=== PATIENT | male | born 2000 | race African-American/Black ===

== ENCOUNTER 2019-10-31 16:42 | Emergency (ER) | payer OTHER, SELFPAY ==
[2019-10-31] MEDS ORDERED: Bupivacaine PF 0.5% 30 ML VIAL ONE (17:07)
== END 2019-10-31 17:22 | disposition home or self-care (01) ==
LOC: MADERS 16:42
DX: K08.89 Other specified disorders of teeth and supporting structures (principal); F17.210 Nicotine dependence, cigarettes, uncomplicated
CPT/HCPCS: 99282; S0020

== ENCOUNTER 2020-04-24 13:09 | Emergency (ER) | payer SELFPAY | END 2020-04-24 14:12 | disposition home or self-care (01) | LOC: MADERS 13:09 | DX: B00.1 Herpesviral vesicular dermatitis (principal); K02.9 Dental caries, unspecified; F17.210 Nicotine dependence, cigarettes, uncomplicated | CPT/HCPCS: 99282 ==

== ENCOUNTER 2021-05-07 14:45 | Emergency (ER) | payer SELFPAY ==
[2021-05-07] MEDS ORDERED: Ondansetron PF 4 MG/2 ML Vial ONE (15:40)
[2021-05-07] MEDS ORDERED: Sodium Chloride 0.9% 2,000 ML ONE (15:40)
[2021-05-07 15:46] LABS: Hemoglobin 15.3 g/dL (14.0-18.0); Lymphocytes 9 % (21-51); MDiff Complete? YES; Mean Corpuscular HGB CONC 31.6 g/dL (32.0-36.0); Mean Corpuscular Hemoglobin 29.9 pg (27.0-31.0); Mean Corpuscular Volume 94.9 fL (78.0-98.0); Mean Platelet Volume 8.2 fL (7.4-10.4); Monocytes 3 % (0-10); Neutrophil 88 % (42-75); Platelet Count 279 thou/uL (130-400); RBC Distribution Width 12.1 % (11.5-14.5); White Blood Cell (WBC) Count 14.3 thou/uL (4.8-10.8)
[2021-05-07 15:54] LABS: ALT (SGPT) 25 U/L (8-55); AST (SGOT) 32 U/L (5-34); Albumin 5.7 g/dL (3.5-5.0); Alkaline Phosphatase 74 U/L (40-110); Anion Gap 23 mmol/L (10-20); BUN (Urea Nitrogen) 21 mg/dL (8.9-20.6); CK (CPK) 766 U/L (30-200); Calc. Creatinine Clearance 0 mL/min (70-130); Calcium 11.1 mg/dL (7.8-10.44); Carbon Dioxide 21 mmol/L (22-29); Chloride 102 mmol/L (98-107); Globulin 4.7 g/dL (2.4-3.5); Glucose 108 mg/dL (70-105); Potassium 3.7 mmol/L (3.5-5.1); Protein, Total 10.4 g/dL (6.0-8.3); Sodium 142 mmol/L (136-145)
[2021-05-07 17:29] LABS: Anion Gap 17 mmol/L (10-20); BUN (Urea Nitrogen) 18 mg/dL (8.9-20.6); CK (CPK) 609 U/L (30-200); Calc. Creatinine Clearance 0 mL/min (70-130); Calcium 9.6 mg/dL (7.8-10.44); Carbon Dioxide 25 mmol/L (22-29); Chloride 106 mmol/L (98-107); Glucose 92 mg/dL (70-105); Potassium 4.1 mmol/L (3.5-5.1); Sodium 144 mmol/L (136-145)
== END 2021-05-07 17:56 | disposition home or self-care (01) ==
LOC: MADERS 14:45
DX: E86.0 Dehydration (principal); M62.82 Rhabdomyolysis; N17.9 Acute kidney failure, unspecified; Z87.891 Personal history of nicotine dependence
CPT/HCPCS: 36415; 80053; 82550; 85025; 93005; 96374; J2405; J7050

== ENCOUNTER 2021-07-07 18:34 | Emergency (ER) | payer SELFPAY | END 2021-07-07 21:10 | disposition home or self-care (01) | LOC: MADERS 18:34 | DX: J02.9 Acute pharyngitis, unspecified (principal); Z87.891 Personal history of nicotine dependence | CPT/HCPCS: 99282 ==

== ENCOUNTER 2021-08-19 03:56 | Emergency (ER) | payer SELFPAY ==
[2021-08-19] MEDS ORDERED: Ondansetron ODT 4 MG TAB ONE (04:12)
[2021-08-19 04:38] LABS: ALT (SGPT) 14 U/L (8-55); AST (SGOT) 14 U/L (5-34); Albumin 3.8 g/dL (3.5-5.0); Alkaline Phosphatase 48 U/L (40-110); Anion Gap 13 mmol/L (10-20); BUN (Urea Nitrogen) 16 mg/dL (8.9-20.6); Bilirubin, Total 0.2 mg/dL (0.2-1.2); Calc. Creatinine Clearance 0 mL/min (70-130); Calcium 9.2 mg/dL (7.8-10.44); Carbon Dioxide 25 mmol/L (22-29); Chloride 106 mmol/L (98-107); Globulin 3.4 g/dL (2.4-3.5); Glucose 103 mg/dL (70-105); Potassium 4.1 mmol/L (3.5-5.1); Protein, Total 7.2 g/dL (6.0-8.3); Sodium 140 mmol/L (136-145)
[2021-08-19 04:39] LABS: Band 2 % (5-11); Eosinophils 2 % (0-10); Hemoglobin 13.3 g/dL (14.0-18.0); Lymphocytes 34 % (21-51); MDiff Complete? YES; Mean Corpuscular HGB CONC 32.1 g/dL (32.0-36.0); Mean Corpuscular Hemoglobin 30.7 pg (27.0-31.0); Mean Corpuscular Volume 95.6 fL (78.0-98.0); Monocytes 5 % (0-10); Neutrophil 57 % (42-75); Platelet Count 238 thou/uL (130-400); RBC Distribution Width 11.9 % (11.5-14.5); Red Blood Cell (RBC) Count 4.32 mill/uL (4.70-6.10); White Blood Cell (WBC) Count 7.7 thou/uL (4.8-10.8)
[2021-08-19 04:40] LABS: Bilirubin Negative (Negative); Blood, Urine Trace (Negative); Clarity Clear (Clear); Glucose, Urine (Dipstick) Negative (Negative); Ketone, Urine Negative (Negative); Leukocyte Negative (Negative); Nitrite Negative (Negative); Protein, Urine (Dipstick) Negative (Neg-Trace); Specific Gravity, Urine 1.025 (1.005-1.030); pH, Urine 6.5 (5.0-9.0)
[2021-08-19 04:41] LABS: Mucous/LPF 1+ LPF (<2+); Squamous Epithelial 0-3 HPF (0-3)
== END 2021-08-19 05:05 | disposition home or self-care (01) ==
LOC: MADERS 03:56
DX: R11.10 Vomiting, unspecified (principal); Z87.891 Personal history of nicotine dependence
CPT/HCPCS: 36415; 80053; 81003; 81015; 85025; 99284; Q0162

== ENCOUNTER 2021-09-15 06:27 | Emergency (ER) | payer SELFPAY | END 2021-09-15 07:13 | disposition home or self-care (01) | LOC: MADERS 06:27 | DX: S83.91XA Sprain of unspecified site of right knee, initial encounter (principal); F17.220 Nicotine dependence, chewing tobacco, uncomplicated; X50.9XXA Other and unspecified overexertion or strenuous movements or postures, initial encounter; Y93.67 Activity, basketball ==

== ENCOUNTER 2021-12-07 11:00 | Emergency (ER) | payer SELFPAY ==
[2021-12-07] MEDS ORDERED: Sodium Chloride 0.9% 1,000 ML ONE (11:30)
[2021-12-07] MEDS ORDERED: Ondansetron PF 4 MG/2 ML Vial ONE (11:33)
[2021-12-07 11:54] LABS: Hemoglobin 14.9 g/dL (14.0-18.0); Lymphocytes 5 % (21-51); MDiff Complete? YES; Mean Corpuscular HGB CONC 32.5 g/dL (32.0-36.0); Mean Corpuscular Hemoglobin 29.9 pg (27.0-31.0); Mean Corpuscular Volume 91.7 fL (78.0-98.0); Mean Platelet Volume 7.2 fL (7.4-10.4); Monocytes 4 % (0-10); Neutrophil 89 % (42-75); Platelet Count 282 thou/uL (130-400); Platelet Morphology Comment Appears Adequate; RBC Distribution Width 12.1 % (11.5-14.5); RBC Morphology Normal; Reactive Lymphocytes 2 % (0-10); Red Blood Cell (RBC) Count 4.97 mill/uL (4.70-6.10); White Blood Cell (WBC) Count 11.3 thou/uL (4.8-10.8)
[2021-12-07 11:58] LABS: ALT (SGPT) 19 U/L (8-55); AST (SGOT) 17 U/L (5-34); Albumin 4.8 g/dL (3.5-5.0); Alkaline Phosphatase 54 U/L (40-110); Anion Gap 19 mmol/L (10-20); BUN (Urea Nitrogen) 11 mg/dL (8.9-20.6); Bilirubin, Total 0.8 mg/dL (0.2-1.2); Calc. Creatinine Clearance 0 mL/min (70-130); Calcium 9.9 mg/dL (7.8-10.44); Carbon Dioxide 25 mmol/L (22-29); Chloride 100 mmol/L (98-107); Globulin 4.3 g/dL (2.4-3.5); Glucose 111 mg/dL (70-105); Magnesium 1.5 mg/dL (1.6-2.6); Potassium 3.6 mmol/L (3.5-5.1); Protein, Total 9.1 g/dL (6.0-8.3); Sodium 140 mmol/L (136-145)
[2021-12-07 12:11] LABS: Lipase Less than 4 U/L (8-78)
[2021-12-07] MEDS ORDERED: Magnesium 2 GM/50 ML BAG (IN WATER) ONE (12:21)
== END 2021-12-07 13:05 | disposition home or self-care (01) ==
LOC: MADERS 11:00
DX: E83.42 Hypomagnesemia (principal); R11.2 Nausea with vomiting, unspecified
CPT/HCPCS: 80053; 83605; 83690; 83735; 85025; 93005; 96365; 96375; J2405; J3475; J7050

== ENCOUNTER 2023-03-07 12:34 | Emergency (ER) | payer SELFPAY | END 2023-03-07 13:00 | disposition home or self-care (01) | LOC: MADERS 12:34 | DX: M54.50 Low back pain, unspecified (principal); F17.220 Nicotine dependence, chewing tobacco, uncomplicated | CPT/HCPCS: 99283 ==

== ENCOUNTER 2023-08-10 06:44 | Emergency (ER) | payer SELFPAY ==
[2023-08-10] MEDS ORDERED: Ketorolac Tromethamine 30 MG/ML VIAL ONE (07:15)
== END 2023-08-10 07:40 | disposition home or self-care (01) ==
LOC: MADERS 06:44
DX: S33.5XXA Sprain of ligaments of lumbar spine, initial encounter (principal); F17.220 Nicotine dependence, chewing tobacco, uncomplicated; X50.1XXA Overexertion from prolonged static or awkward postures, initial encounter
CPT/HCPCS: 96372; 99283; J1885

== ENCOUNTER 2023-09-10 06:10 | Emergency (ER) | payer OTHER, SELFPAY ==
[2023-09-10] MEDS ORDERED: Lidocaine 1% PF 5 ML VIAL ONE (06:32)
[2023-09-10] MEDS ORDERED: Boostrix 0.5 ML (Tdap) VIAL (>/=7 yrs of age) ONE (06:40)
[2023-09-10] MEDS ORDERED: Triple Antibiotic Oint 1 GM Packet ONE (06:49)
== END 2023-09-10 07:00 | disposition home or self-care (01) ==
LOC: MADERS 06:10
DX: S61.411A Laceration without foreign body of right hand, initial encounter (principal); Z23 Encounter for immunization; W26.9XXA Contact with unspecified sharp object(s), initial encounter; F17.210 Nicotine dependence, cigarettes, uncomplicated; F17.220 Nicotine dependence, chewing tobacco, uncomplicated
CPT/HCPCS: 12001; 90471; 90715

== ENCOUNTER 2024-01-19 08:39 | Emergency (ER) | payer OTHER, SELFPAY ==
[2024-01-19 09:43] LABS: Influenza A by NAA Not Detected (NotDetected); Influenza B by NAA Not Detected (NotDetected); SARS-CoV-2 NAA Rapid Test Not Detected (NotDetected)
== END 2024-01-19 09:50 | disposition home or self-care (01) ==
LOC: MADERS 08:39
DX: J02.9 Acute pharyngitis, unspecified (principal); F17.210 Nicotine dependence, cigarettes, uncomplicated; F17.220 Nicotine dependence, chewing tobacco, uncomplicated
CPT/HCPCS: 87081; 87430; 99283

== ENCOUNTER 2024-04-07 13:54 | Emergency (ER) | payer SELFPAY | END 2024-04-07 16:00 | disposition home or self-care (01) | LOC: MADERS 13:54 | DX: S16.1XXA Strain of muscle, fascia and tendon at neck level, initial encounter (principal); V89.2XXA Person injured in unspecified motor-vehicle accident, traffic, initial encounter | CPT/HCPCS: 99283 ==